=== PATIENT | male | born 1975 | race Caucasian/White ===

== ENCOUNTER 2019-06-04 10:39 | Emergency (ER) | payer MEDICAID, OTHER ==
[~2019-06-04 10:39] MED LIST: LANS15CA60 PO
[2019-06-04 10:42] VITALS: BP 153/102
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
[2019-06-04] MEDS ORDERED: KETOROLAC 30 MG/1 ML ONE (11:23)
[2019-06-04] MEDS ORDERED: DIAZEPAM 5 MG TABLET ONE (11:23)
--- NOTE | 2019-06-04 11:27 | NUR ---
PT MEDICATED PER EMAR. PT TOLERATED WELL.
[2019-06-04] MEDS ORDERED: DIAZEPAM 5 MG TABLET PO ONE (11:30)
[2019-06-04] MEDS ORDERED: KETOROLAC 30 MG/1 ML IM ONE (11:30)
[2019-06-04 11:48] LABS: MEAN CORPUSCULAR HEMOGLOBIN 28.7 pg (27.5-34.5); MEAN CORPUSCULAR HGB CONC 32.9 g/dL (33.2-36.2); MEAN CORPUSCULAR VOLUME 87.2 fL (81-97); MEAN PLATELET VOLUME 9.3 fL (7.4-10.4); PLATELET COUNT 242 x10^3/uL (130-400); RED BLOOD COUNT 5.88 x10^6/uL (4.38-5.82); RED CELL DISTRIBUTION WIDTH 14.9 % (9.4-14.8)
[2019-06-04 11:55] LABS: ALBUMIN 4.1 g/dL (3.4-5.0); ANION GAP 4 mmol/L (5-15); CHLORIDE 112 mmol/L (98-107); CREATININE 1.07 mg/dL (0.7-1.3)
[2019-06-04 12:26] LABS: MD YES
[2019-06-04 12:27] LABS: BANDS%(MANUAL) 1 % (0-7); EOS% (MANUAL) 1 % (1-7); LYMPH#(MANUAL) 3.81 x10^3/uL (1-3.4); LYMPHS% (MANUAL) 37 % (22-44); MONOS#(MANUAL) 0.72 x10^3/uL (0.3-2.7); MONOS% (MANUAL) 7 % (2-9); REACTIVE LYMPHS # (MANUAL) 0.62 x10^3/uL (0-0); REACTIVE LYMPHS % (MANUAL) 6 % (0-0); SEG#(MANUAL) 4.94 x10^3/uL (1.8-6.8); SEGS% (MANUAL) 48 % (42-75)
[2019-06-04 12:28] LABS: <PLATELET ESTIMATE> ADEQUATE; <PLT MORPHOLOGY> NORMAL PLT MORPH; <RBC MORPHOLOGY> NORMAL
--- NOTE | 2019-06-04 12:41 | NUR ---
Patient given discharge instructions and they have confirmed that they understand the instructions. Patient ambulatory with steady gait.
== END 2019-06-04 12:52 | disposition home or self-care (01) ==
LOC: ED 12:48
DX: S16.1XXA Strain of muscle, fascia and tendon at neck level, initial encounter (principal); R53.1 Weakness; K21.9 Gastro-esophageal reflux disease without esophagitis; I10 Essential (primary) hypertension; F17.210 Nicotine dependence, cigarettes, uncomplicated; W22.8XXA Striking against or struck by other objects, initial encounter; Y93.89 Activity, other specified; Y92.410 Unspecified street and highway as the place of occurrence of the external cause; Y99.8 Other external cause status
CPT/HCPCS: 36415; 72050; 80048; 82040; 85025; 93005; 96372; 99284; J1885